=== PATIENT | male | born 1950 | race Two or more races ===

== ENCOUNTER → 2017-05-01 | Outpatient (CLI) | payer MEDICARE, BC ==
--- NOTE | 2017-05-01 18:16 | RADRPT ---
PROCEDURE: XR Knees. CLINICAL INDICATION: Bilateral knee pain. TECHNIQUE: Total of six views. Frontal, oblique, and lateral views of both knees. COMPARISON: No prior study is available for comparison. FINDINGS: There is a right knee total constrained arthroplasty which appears satisfactory. There is no fractur e, dislocation, or loosening. The left knee demonstrates degenerative change with medial joint compartment narrowing, subarticular sclerosis, and deformity. There is no fracture or dislocation. There is no lytic or blastic lesion. The soft tissues are unremarkable. IMPRESSION: 1. Satisfactory postoperative appearance of the right knee. 2. Moderate to severe degenerative changes of the left knee. RPTAT: QQ .Reji Muñiz MD, MD Date Time Electronically viewed and signed by .Reji Muñiz MD, on 05/01/2017 18:16 .R/
--- NOTE | 2017-05-04 14:22 | HKNOTE ---
DATE OF SERVICE: 05/01/2017 CHIEF COMPLAINT: Left knee pain. HISTORY OF PRESENT ILLNESS: Mr. Aguilar is a 66-year-old male who is here for evaluation of left kn ee pain. The pain has been ongoing for a number of years. The patient has had some treatment with medications and one or two injections in the past with no significant relief. He continues to be ac tive with walking. He had a right knee replacement a few years ago by Dr. Felix. The patient is here to talk about a possible left knee replacement. The left knee pain is constant, increases w ith weightbearing activities and interferes with routine activities. The pain also occasionally wak es him up at night. He has reached a point where he is considering surgical treatment. PAST HISTORY: Significant for right total knee replacement. MEDICATIONS: Trazodone. ALLERGIES: PERCOCET. REVIEW OF SYSTEMS: Negative for chest pain, shortness of breath, nausea, vomiting, diarrhea. It is positive for left knee pain. PHYSICAL EXAMINATION: GENERAL: Shows a pleasant male. He is awake, alert and oriented, breathing comfortably. HEART: Regular rate and rhythm. VITAL SIGNS: Stable with blood pressure of 110/76, temperature 98.2, pulse rate 82 and respirations 16. EXTREMITIES: The patient walks with a limp on his left side. The left knee has a varus deformity o f 10 degrees. Range of motion shows 10 to 120 degrees of motion with mild swelling of the left knee . There is crepitus with range of motion. There is medial joint line tenderness on the left knee w ith no neurovascular deficits. The knee is stable. The right knee shows a healed incision with no deformity. Range of motion of the right knee is 0 to 120. Hips have good range of motion. Lumbar spine has no tenderness. IMAGING: X-rays of the left knee were done and show advanced osteoarthritis with complete loss of m edial joint space and medial and patellofemoral osteophytes. ASSESSMENT AND PLAN: A 66-year-old male who has advanced arthritis of his left knee. He has failed conservative treatment for the past couple of years. The pain has reached a point where it is inte rfering with routine activities and the patient would like to proceed with left total knee replaceme nt. The risks and benefits of this procedure were discussed with the patient. Implant materials an d surgical techniques were discussed. The patient will be scheduled for surgery after the holidays, as per his request. Dictated By: PEDRO KWOK/RODRIGUE Conf#: [id number] DID#: [id number]
== END | disposition home or self-care (01) ==
LOC: HKI 15:41
PROVIDERS: ATTEND Orthopaedic Surgery
DX: M17.12 Unilateral primary osteoarthritis, left knee (principal); Z96.651 Presence of right artificial knee joint
CPT/HCPCS: 73562; G0463

== ENCOUNTER 2018-05-05 15:31 | Emergency (ER) | END 2018-05-05 19:23 | disposition home or self-care (01) ==

== ENCOUNTER → 2018-06-21 | Outpatient (CLI) | END | disposition home or self-care (01) ==